=== PATIENT | female | born 1935 | race Caucasian/White ===

== ENCOUNTER 2017-09-11 08:24 | Outpatient (CLI) | payer OTHER ==
[~2017-09-11 08:24] MED LIST: AMBIEN10 MG; CLARINEX5 MG/TAB; COZAAR100 MG; CRESTOR5 MG; DILTIAZEM ER60 MG; OMEPRAZOLE20 MG; PAXIL10 MG/5 ML; SINGULAIR10 MG; SYNTHROID75 MCG
== END 2017-09-11 08:31 | disposition home or self-care (01) ==
LOC: SONOGRAMA 08:24
DX: E04.1 Nontoxic single thyroid nodule (principal)

== ENCOUNTER 2021-01-22 09:28 | Outpatient (CLI) | payer OTHER | END 2021-01-22 10:00 | disposition home or self-care (01) | LOC: SONOGRAMA 09:28 | PROVIDERS: ATTEND Pathology Anatomic Pathology & Clinical Pathology | DX: E04.1 Nontoxic single thyroid nodule (principal) ==